=== PATIENT | female | born 1990 | race Caucasian/White ===

== ENCOUNTER 2024-01-26 08:18 | Inpatient (IN) | payer BC ==
[2024-01-26] MEDS ORDERED: Ondansetron 4 MG/2 ML SDV IVPUSH PRN (09:34)
[2024-01-26] MEDS ORDERED: Carboprost Tromethamine 250 MCG/1 ML Amp IM PRN (09:34)
[2024-01-26] MEDS ORDERED: Sodium Chloride 0.9% 10 ML Syringe FLUSH PRN (09:34)
[2024-01-26] MEDS ORDERED: Methylergonovine 0.2 MG/1 ML Amp IM PRN (09:34)
[2024-01-26] MEDS ORDERED: Misoprostol 400 MCG (4 X 100 MCG TAB) RECTAL PRN (09:34)
[2024-01-26] MEDS ORDERED: Tranexamic Acid 1,000 MG in Sodium Chloride 0.9% 100 ML IV PRN (09:34)
[2024-01-26] MEDS ORDERED: fentaNYL 100 MCG/2 ML SDV IVPUSH PRN (09:34)
[2024-01-26] MEDS ORDERED: Acetaminophen 325 MG Tab PO PRN (09:34)
[2024-01-26 14:24] LABS: HEMATOCRIT 38.5 % (37.0-47.0); HEMOGLOBIN 13.1 g/dL (12.0-16.0); MEAN CORPUSCULAR VOLUME 94.1 fL (80-100); RED BLOOD CELL COUNT 4.09 10^6/uL (4.2-5.4); WHITE BLOOD CELL COUNT,WBC 7.9 10^3/uL (5.0-10.0)
[2024-01-26] MEDS: Misoprostol 25 MCG (1/4 of 100 MCG) Tab VAG PRN (14:37)
[2024-01-26] MEDS: Misoprostol 50 MCG (1/2 of 100 MCG) Tab VAG SCH (22:05)
[2024-01-27] MEDS: Lactated Ringers 1,000 ML IV SCH (02:23)
[2024-01-27] MEDS: Oxytocin/Normal Saline 30 UNIT/500 ML BAG IV SCH (02:23)
[2024-01-27] MEDS ORDERED: fentaNYL 100 MCG/2 ML SDV ONE (07:26)
[2024-01-27] MEDS ORDERED: Bupivacaine 0.25% 10 ML SDV ONE (07:27)
[2024-01-27] MEDS ORDERED: ePHEDrine 50 MG/ML SDV IVPUSH PRN (07:54)
[2024-01-27] MEDS ORDERED: Phenylephrine HCl In 0.9% NaCl 1 MG/10 ML Syringe IVPUSH PRN (07:54)
[2024-01-27] MEDS ORDERED: Ropivacaine 200 MG in Premix Bag 1 BAG EPIDUR SCH (08:00)
[2024-01-27] MEDS ORDERED: Simethicone 80 MG Tab.Chew PO PRN (11:21)
[2024-01-27] MEDS ORDERED: Methylergonovine 0.2 MG Tab PO PRN (11:21)
[2024-01-27] MEDS ORDERED: Oxytocin 10 Units/1 ML SDV IM PRN (11:21)
[2024-01-27] MEDS: Ibuprofen 800 MG Tab PO SCH ×2 (13:47→21:30)
[2024-01-27] MEDS: Witch Hazel Medicated Pads 100/Jar TOP PRN (13:47)
[2024-01-27] MEDS: Benzocaine/Menthol 20%-0.5% Spray 78 GM Cannister TOP PRN (13:47)
[2024-01-27] MEDS: Docusate Sodium 100 MG Cap PO PRN (13:48)
[2024-01-27] MEDS: Lactated Ringers 1,000 ML IV ONE (18:37)
[2024-01-27] MEDS: Lidocaine 1% 30 ML SDV INJECT ONE (18:38)
[2024-01-27] MEDS: Acetaminophen 325 MG Tab PO PRN (21:30)
[2024-01-28 07:39] LABS: HEMATOCRIT 31.9 % (37.0-47.0); HEMOGLOBIN 10.7 g/dL (12.0-16.0); MEAN CORPUSCULAR HEMOGLOBIN 32.1 pg (27.0-34.0); MEAN CORPUSCULAR HGB CONC 33.5 g/dL (33.0-35.0); MEAN CORPUSCULAR VOLUME 95.8 fL (80-100); RED BLOOD CELL COUNT 3.33 10^6/uL (4.2-5.4); WHITE BLOOD CELL COUNT,WBC 9.6 10^3/uL (5.0-10.0)
[2024-01-28] MEDS: Prenatal Multivitamin with Calcium/Folic Acid/Iron Tab PO SCH (08:05)
[2024-01-28] MEDS: Metoprolol Tartrate 5 MG/5 ML SDV ONE ×3 (20:00→20:18)
[2024-01-28] MEDS: Metoprolol Tartrate 5 MG/5 ML SDV IVPUSH ONE ×5 (20:00→23:36)
[2024-01-28 20:05] LABS: A/G RATIO 0.66; ALBUMIN 2.7 g/dL (3.4-5.0); ANION GAP 15.7 mEq/L (7-13); BILIRUBIN TOTAL 0.2 mg/dL (0.2-1.0); BUN/CREATININE RATIO 11.5 (No establ ref range); CALCIUM 8.9 mg/dL (8.5-10.1); CREATININE 0.78 mg/dL (0.55-1.02); EST CRCL DRUG DOSING (CG) 99.76 mL/min; POTASSIUM,K 3.7 mmol/L (3.5-5.1); PROTEIN TOTAL,TP 6.8 g/dL (6.4-8.2); TSH ULTRASENSITIVE 1.39 uIU/mL (0.36-3.74)
[2024-01-28 20:32] LABS: HEMATOCRIT 35.4 % (37.0-47.0); HEMOGLOBIN 12.3 g/dL (12.0-16.0)
[2024-01-28] MEDS: Diltiazem 25 MG/5 ML SDV IVPUSH ONE (21:00)
[2024-01-28] MEDS ORDERED: Diltiazem 125 MG in Sodium Chloride 0.9% 100 ML IV SCH (21:00)
[2024-01-28] MEDS: Metoprolol Tartrate 25 MG Tab PO SCH (22:13)
[2024-01-28] MEDS: Enoxaparin 40 MG/0.4 ML Syringe SUBCUT SCH (22:15)
[2024-01-28] MEDS: Enoxaparin 40 MG/0.4 ML Syringe ONE (23:16)
[2024-01-29] MEDS ORDERED: Sodium Chloride 0.9% 10 ML Syringe FLUSH PRN (02:27)
[2024-01-29] MEDS: Diltiazem 25 MG/5 ML SDV IVPUSH ONE (07:30)
[2024-01-29] MEDS: Sodium Chloride 0.9% 10 ML Syringe FLUSH SCH (09:22)
[2024-01-29] MEDS: Metoprolol Tartrate 25 MG Tab PO SCH (11:22)
== END 2024-01-30 13:25 | disposition home or self-care (01) | DRG 560 ==
LOC: DL.OB 10:55 → OBSVTOIN 01-27 10:55
PROVIDERS: ADMIT Family Medicine; ATTEND Family Medicine
PROC: 10D07Z6 Extraction of Products of Conception, Vacuum, Via Natural or Artificial Opening (ICD-10-PCS; principal; 2024-01-27)
PROC: 3E0P7VZ Introduction of Hormone into Female Reproductive, Via Natural or Artificial Opening (ICD-10-PCS; 2024-01-27)
PROC: 0KQM0ZZ Repair Perineum Muscle, Open Approach (ICD-10-PCS; 2024-01-27)
PROC: 0W8NXZZ Division of Female Perineum, External Approach (ICD-10-PCS; 2024-01-27)
DX: O48.0 Post-term pregnancy (principal); O99.02 Anemia complicating childbirth; O70.1 Second degree perineal laceration during delivery; Z37.0 Single live birth; Z3A.40 40 weeks gestation of pregnancy; O42.02 Full-term premature rupture of membranes, onset of labor within 24 hours of rupture; D64.9 Anemia, unspecified; O99.43 Diseases of the circulatory system complicating the puerperium; I48.92 Unspecified atrial flutter
CPT/HCPCS: 36415; 51702; 59409; 80053; 84443; 84484; 85014; 85018; 85027; 93005; A9270-GY; J1650; J2590; J3490; J7120

== ENCOUNTER 2025-03-07 17:16 | Emergency (ER) | payer BC ==
[2025-03-07] MEDS ORDERED: Sodium Chloride 0.9% 10 ML Syringe FLUSH PRN (17:40)
[2025-03-07 17:48] LABS: BASOPHILS PERCENT AUTO 0.2 % (0.0-1.0); EOSINOPHILS PERCENT AUTO 3.1 % (1.0-3.0); LYMPHOCYTES PERCENT AUTO 32.6 % (20.5-50.1); MONOCYTES PERCENT AUTO 7.1 % (2-8); NEUTROPHILS PERCENT AUTO 57.0 % (42.2-75.2); PLATELET COUNT,PLT 202 10^3/uL (150-450); RED BLOOD CELL COUNT 4.71 10^6/uL (4.2-5.4); WHITE BLOOD CELL COUNT,WBC 9.9 10^3/uL (5.0-10.0)
[2025-03-07 17:55] LABS: INR 0.9 (0.9-1.2); PTT,PARTIAL THROMBOPLSTIN TIME 25.8 SEC (22.0-34.0)
[2025-03-07 18:07] LABS: A/G RATIO 1.2; ALANINE AMINOTRANSFERASE,ALT 29 U/L (14-59); ASPARTATE AMNIOTRANSFERASE,AST 13 U/L (15-37); BILIRUBIN TOTAL 0.3 mg/dL (0.2-1.0); BLOOD UREA NITROGEN,BUN 20 mg/dL (7-18); CARBON DIOXIDE,CO2 27 mmol/L (21-32); CHLORIDE,CL 104 mmol/L (98-107); CREATININE 0.86 mg/dL (0.55-1.02); ESTIMATED GFR 91 mL/min (>=60); GLUCOSE RANDOM 105 mg/dL (70-99); POTASSIUM,K 3.9 mmol/L (3.5-5.1); PROTEIN TOTAL,TP 7.8 g/dL (6.4-8.2); SODIUM,NA 140 mmol/L (136-145); TSH ULTRASENSITIVE 1.18 uIU/mL (0.36-3.74)
[2025-03-07 18:14] LABS: B-TYPE NATRIURETIC PEPTIDE,BNP 13 pg/ml (0-100)
[2025-03-07] MEDS: Metoprolol Tartrate 5 MG/5 ML SDV ONE (19:41)
[2025-03-07] MEDS: Metoprolol Tartrate 5 MG/5 ML SDV IVPUSH ONE (19:42)
[2025-03-07] MEDS: [UNRECOGNIZED DRUG - OTHER] PO ONE (20:07)
== END 2025-03-07 20:11 | disposition home or self-care (01) ==
LOC: DL.ED 17:16
DX: I48.92 Unspecified atrial flutter (principal); I49.1 Atrial premature depolarization; Z79.899 Other long term (current) drug therapy
CPT/HCPCS: 36415; 71045; 80053; 83735; 83880; 84443; 84484; 84703; 85025; 85610; 85730; 93005; 93010; 99284; 99285; A9270

== ENCOUNTER 2025-03-10 07:03 | Emergency (ER) | payer BC ==
[2025-03-10] MEDS ORDERED: Sodium Chloride 0.9% 10 ML Syringe FLUSH PRN ×2 (07:24)
[2025-03-10 07:45] LABS: BASOPHILS PERCENT AUTO 0.3 % (0.0-1.0); EOSINOPHILS PERCENT AUTO 3.9 % (1.0-3.0); LYMPHOCYTES PERCENT AUTO 34.0 % (20.5-50.1); MONOCYTES PERCENT AUTO 8.2 % (2-8); NEUTROPHILS PERCENT AUTO 53.6 % (42.2-75.2); PLATELET COUNT,PLT 184 10^3/uL (150-450); RED BLOOD CELL COUNT 4.36 10^6/uL (4.2-5.4); WHITE BLOOD CELL COUNT,WBC 6.1 10^3/uL (5.0-10.0)
[2025-03-10 08:03] LABS: A/G RATIO 1.3; ALANINE AMINOTRANSFERASE,ALT 31 U/L (14-59); ASPARTATE AMNIOTRANSFERASE,AST 16 U/L (15-37); BILIRUBIN TOTAL 0.5 mg/dL (0.2-1.0); BLOOD UREA NITROGEN,BUN 13 mg/dL (7-18); CARBON DIOXIDE,CO2 28 mmol/L (21-32); CHLORIDE,CL 105 mmol/L (98-107); CREATININE 0.61 mg/dL (0.55-1.02); GLUCOSE RANDOM 93 mg/dL (70-99); POTASSIUM,K 3.9 mmol/L (3.5-5.1); PROTEIN TOTAL,TP 7.0 g/dL (6.4-8.2); SODIUM,NA 139 mmol/L (136-145)
[2025-03-10 08:07] LABS: ESTIMATED GFR 120 mL/min (>=60)
== END 2025-03-10 08:51 | disposition home or self-care (01) ==
LOC: DL.ED 07:03
DX: I48.91 Unspecified atrial fibrillation (principal); Z79.899 Other long term (current) drug therapy
CPT/HCPCS: 36415; 80053; 85025; 93005; 93010; 99284; 99285